=== PATIENT | male | born 1980 | race Caucasian/White ===

== ENCOUNTER 2023-11-20 12:56 | Emergency (ER) | payer OTHER, SELFPAY ==
--- NOTE | 2023-11-20 12:58 | ED.EAR ---
HPI - Ear Problem General Chief complaint: Ear Stated complaint: Object Stuck in Left Ear Time Seen by Provider: 11/20/23 12:57 Source: patient Mode of arrival: ambulatory Limitations: no limitations History of Present Illness HPI Narrative: Patient is a 42-year-old male who presents with piece of ear bud stuck in left ear canal. Complaint: ear pain Related Data Home Medications Medication Instructions Recorded Confirmed No Home Medications 11/20/23 11/20/23 Allergies Allergy/AdvReac Type Severity Reaction Status Date / Time No Known Allergies Allergy Verified 11/20/23 13:02 Review of Systems Review of Systems: All systems reviewed & are unremarkable except as noted in HPI and below Constitutional: Constitutional: Denies body ache(s), Denies chills, Denies fever(s), Denies headache(s) and Denies malaise Eyes: Eyes: Denies blurry vision, Denies eye discharge and Denies irritation ENT: Denies headache(s), Denies nasal congestion, Denies nasal discharge, Denies sore throat and Reports other (Foreign body in ear) Cardiovascular: Cardiovascular: Denies chest pain, Denies edema, Denies palpitations and Denies dyspnea on exertion Respiratory: Respiratory: Denies cough and Denies dyspnea on exertion Gastrointestinal: Gastrointestinal: Denies abdominal pain, Denies diarrhea, Denies nausea and Denies vomiting Musculoskeletal: Musculoskeletal: Denies back pain, Denies arthralgias and Denies muscle weakness Integumentary/Breasts: Skin/Breast: Denies pruritus and Denies rash Neurologic: Denies headache(s) Psychiatric: Psychiatric: Reports no additional psychiatric complaints Endocrine: Endocrine: Denies palpitations PMFSH Comments At time of signature, agree with nursing past medical, surgical, social and family history. There is no relevant family history pertinent to the presenting complaint? Exam Const: General: cooperative, healthy appearing, no acute distress and well nourished Nutritional Appearance: well nourished Orientation/consciousness: patient oriented x3 Limitations: no limitations HENMT: Head: normal to inspection, normocephalic and atraumatic Ears: hearing grossly normal bilaterally, TM normal on the right, no periauricular adenopathy and Abnormal EAC present foreign body on the left Face/Nose/Sinus: Normal external nose present, Normal nares present, Normal nasal mucous membranes and turbinates present, No nasal discharge present, normal facial exam and sinuses nontender Face and sinus: normal facial exam and sinuses nontender Mouth: Yes Normal oral and palatal mucosa present, Yes lip normal, Yes tongue normal and Yes moist mucous membranes Throat: posterior oropharynx normal, tonsils normal and uvula midline Eyes: General: appearance normal, both eyes and all related structures Alignment and Position: alignment normal and position normal Eyelids: eyelids normal Pupils: Equal, round and reactive pupils present EOM: EOMs intact bilaterally Neck: Neck: normal visual inspection, full ROM, no lymphadenopathy and supple Chest: Chest palpation & inspection: normal inspection of the chest Resp: Effort & Inspection: normal respiratory effort and able to speak in complete sentences Auscultation: clear to auscultation bilaterally, no crackles, no rales, no rhonchi and no wheezes Cardio: Rate: regular rate Rhythm: regular rhythm Heart sounds: S1 normal heart sound present and S2 normal heart sound present Skin: General skin exam: normal color and no rashes or lesions noted Neuro: General: patient oriented x3 and moves all extremities Cranial nerves: Yes Equal, round and reactive pupils present Cognition (Neuro): normal cognition Speech: normal speech Gait exam (Neuro): Normal gait present Extrem: General: normal to inspection and full ROM Psych: Appearance: grossly normal and well kempt Mental Status: mental status grossly normal Speech and movement: Normal speech and movement present Co
[2023-11-20 13:07] VITALS: BP 142/93; PULSE 99; RESP 14; TEMP 37.4; O2SAT 98
== END 2023-11-20 13:20 | disposition home or self-care (01) ==
PROVIDERS: Emergency Provider Nurse Practitioner Family; PCP Family Medicine
DX: T16.2XXA Foreign body in left ear, initial encounter (principal); W44.G1XA Audio device entering into or through a natural orifice, initial encounter
CPT/HCPCS: 69200; 99212; G0463

== ENCOUNTER 2024-03-25 20:08 | Observation (INO) | payer OTHER, SELFPAY ==
--- NOTE | ~2024-03-25 | CT_ITS ---
EXAMINATION:CT diagnostic chest w con DATE: 03/25/2024 23:02 INDICATION: Dyspnea. Productive cough. TECHNIQUE: Computed tomography (CT) of the chest was performed with 75 mL Omnipaque 350 intravenous c ontrast. Automated exposure control and iterative reconstruction technique were employed. The dose-le ngth product (DLP) was 736.24 mGy-cm. COMPARISON: Chest 2 views 03/25/2024 FINDINGS: There is mild scarring at the lung apices. There is mild atelectasis bilaterally. No pleura l effusion. The heart size is normal. No pericardial effusion. There is diffuse hepatic steatosis. Th ere is mild thoracic spondylosis. IMPRESSION: 1. Mild scarring at the lung apices. 2. Diffuse hepatic steatosis. Reviewed, dictated and finalized at location A.
--- NOTE | ~2024-03-25 | XR_ITS ---
EXAMINATION: XR chest 2V DATE: 03/25/2024 20:54 INDICATION: Chest pain. TECHNIQUE: Frontal and lateral views of the chest were obtained. COMPARISON: None. FINDINGS: There is mild scarring at the lung apices. No pleural effusion or pneumothorax. The heart s ize is normal. IMPRESSION: 1. No acute cardiopulmonary disease. Reviewed, dictated and finalized at location A.
[2024-03-25 20:11] VITALS: BP 137/95; PULSE 87; RESP 20; TEMP 36.6; O2SAT 98
--- NOTE | 2024-03-25 20:16 | ECG_ITS ---
Test Date: 2024-03-25 20:19:06 Measurements Intervals [place] Rate: 151 P: 0 ID: 0 QRS: 64 QRSD: 132 T: 249 QT: 280 QTc: 444 Interpretive Statements ATRIAL FLUTTER/TACHYCARDIA WITH RAPID VENTRICULAR RESPONSE No previous ECG available for comparison Electronically Signed On 03-26-2024 13:36:17 CDT by Felton Massey M.D.
[2024-03-25 20:49] LABS: Basophils Percent Auto 0.4 % (0.2-1.2); Eosinophils Absolute Auto 0.1 K/mm3 (0-0.3); Eosinophils Percent Auto 1.3 % (0-4.4); Hemoglobin 16.4 g/dL (14.0-18.0); Immature Granulocyte Absolute 0.02 K/mm3 (0.00-0.031); Immature Granulocyte Percent A 0.3 % (0-0.5); Lymphocytes Absolute Auto 1.85 K/mm3 (0.9-3.2); Lymphocytes Percent Auto 23.2 % (18.3-44.2); Mean Corpuscular HGB Conc 34.9 g/dl (32-36); Mean Corpuscular Hemoglobin 30.5 pg (26-34); Mean Corpuscular Volume 87.4 fl (80-100); Mean Platelet Volume 10.3 fl (7.4-10.4); Monocytes Absolute Auto 1.1 K/mm3 (0.1-0.6); Monocytes Percent Auto 13.9 % (2.6-8.5); Neutrophils Absolute Auto 4.9 K/mm3 (1.3-6.7); Neutrophils Percent Auto 60.9 % (45.5-73.1); Platelet Count Result 184 k/mm3 (150-375); Red Blood Count 5.38 M/mm3 (4.6-6.20); Red Cell Distribution Width 12.5 % (11.5-14.5)
[2024-03-25 20:59] LABS: INR 1.1; Prothrombin Time 14.1 Seconds (11.1-14.7)
[2024-03-25 21:00] LABS: Partial Thromboplastin Time 27.2 Seconds (22.3-36.8)
[2024-03-25 21:02] LABS: Alanine Aminotransferase 42 U/L (6-50); Albumin Level 3.8 g/dL (3.5-5.1); Alkaline Phosphatase 62 U/L (38-126); Anion Gap 4 mmol/L (4-12); Aspartate Amino Transferase 44 U/L (17-59); Bilirubin,Total 0.6 mg/dL (0.2-1.3); Blood Urea Nitrogen 19 mg/dL (9-20); Calcium 8.5 mg/dL (8.4-10.2); Carbon Dioxide 33 mmol/L (22-30); Chloride 98 mmol/L (98-107); Estimated CRCL calculation 132 ml/min; Estimated Glomerular Filt Rate > 60; Glucose 371 mg/dL (65-110); Lipase 142 U/L (23-300); Potassium 4.4 mmol/L (3.4-5.0); Sodium 135 mmol/L (137-145)
[2024-03-25] MEDS: ASPIRIN 81 MG CHEWABLE TABLET 324 MG PO (21:07)
[2024-03-25 21:13] LABS: Troponin I < 0.012 ng/mL (0.000-0.034)
[2024-03-25] MEDS: methylPREDNISolone SOD SUCC 125 MG VIAL IV PUSH (21:29)
[2024-03-25] MEDS: dilTIAZem HCl INJ 25 MG/5 ML VIAL 10 MG IV PUSH (21:30)
[2024-03-25] MEDS: SODIUM CHLORIDE 0.9% IV 1,000 ML 999 ML IV CONT (21:30)
[2024-03-25 21:32] VITALS: BP 148/100; PULSE 132
[2024-03-25] MEDS: dilTIAZem 100 MG/100 ML 100 MG/100 ML BAG IV CONT (21:32)
[2024-03-25 21:34] LABS: Magnesium 1.9 mg/dL (1.6-2.3)
[2024-03-25] MEDS: IPRATROPIUM 0.5 MG/ALBUTEROL SULFATE 2.5 MG AMPUL.NEB 3 ML 6 ML INHALATION ×3 (21:38→21:40)
[2024-03-25 21:40] VITALS: PULSE 105; RESP 22
[2024-03-25 21:43] LABS: D Dimer < 0.27 ug/mL (<0.48)
[2024-03-25 21:45] LABS: NT Pro B Type Natriuretic Pept 236 pg/mL (19.9-100)
--- NOTE | 2024-03-25 22:12 | ED.SOB ---
HPI - SOB/Dyspnea General Chief Complaint: Shortness of Breath/Dyspnea <Angelika Melchor APRN - Last Filed: 03/26/24 00:23> Stated Complaint: palpations <Angelika Melchor APRN - Last Filed: 03/26/24 00:23> Time Seen by Provider: 03/25/24 21:00 <Angelika Melchor APRN - Last Filed: 03/26/24 00:23> History of Present Illness HPI Narrative: Patient is a 43-year-old male who presents to the ER with 6 weeks of productive cough. He reports he does not have a primary care provider as he has not had insurance. About 6 weeks ago he went to urgent care and was given amoxicillin. He completed that course but continued to sinus pressure and a cough so he went back to Urgent Care and was given a Z-Jasper. Patient reports he completed this antibiotic but has continued to have symptoms. Today patient went back to urgent care and they told him his heart rate was to, so he should go to the emergency room. Patient reports he has a medical history of diabetes, HTN, and AFib, but has not taken medication to treat these conditions in ?a while.? He denies any current shortness of breath, chest pain, or numbness/tingling in his extremities. <Angelika Melchor APRN - Last Filed: 03/26/24 00:23> Related Data Home Medications: Home Medications Medication Instructions Recorded Confirmed No Home Medications 11/20/23 11/20/23 <Angelika Melchor APRN - Last Filed: 03/26/24 00:23> Allergies/Adverse Reactions: Allergies Allergy/AdvReac Type Severity Reaction Status Date / Time No Known Allergies Allergy Verified 03/25/24 20:15 <Angelika Melchor APRN - Last Filed: 03/26/24 00:23> Review of Systems Review of Systems: All systems reviewed & are unremarkable except as noted in HPI and below <Angelika Melchor APRN - Last Filed: 03/26/24 00:23> Exam Narrative: GENERAL: Well appearing, obese, non-toxic, in no acute distress. HEAD: Normocephalic, atraumatic. NECK: Supple. No adenopathy, no masses. RESPIRATORY: Airway patent, respirations nonlabored. Clear to auscultation bilaterally, no rales, rhonchi, wheezing. CARDIOVASCULAR: Irregular rate and rhythm (a. flutter) without murmurs, rubs, or gallops. Peripheral pulses 2+ and equal bilaterally. Lower extremities mildly edematous. ABDOMINAL: Soft, nontender, nondistended, no hepatosplenomegaly. Normoactive BS. MUSCULOSKELETAL: Moves all extremities. Strength/ROM intact without gross deformities. SKIN: Warm, dry, normal color. No rashes. NEURO: A&O X3. Speech clear. Cranial nerves II-XII grossly intact. No ataxic movements. PSYCHIATRIC: Appropriate mood and affect. Normal interaction. <Angelika Melchor APRN - Last Filed: 03/26/24 00:23> Course SHIRT TURNER/PA Physician Supervision This visit was performed by both a physician and an APC. I performed all aspects of the MDM as documented. <Adolfo Feliciano MD - Last Filed: 03/26/24 01:02> Vital Signs Vital signs: Vital Signs Temperature 97.9 F 03/25/24 20:11 Pulse Rate 87 03/25/24 20:11 Respiratory Rate 20 03/25/24 20:11 Blood Pressure 137/95 H 03/25/24 20:11 Pulse Oximetry 98 03/25/24 20:11 Oxygen Delivery Room Air 03/25/24 20:11 Temperature 98.3 F 03/26/24 00:40 Pulse Rate 92 03/26/24 00:40 Respiratory Rate 22 H 03/26/24 00:40 Blood Pressure 127/79 03/26/24 00:40 Pulse Oximetry 93 03/26/24 00:40 Oxygen Delivery Room Air 03/25/24 21:01 <Angelika Melchor APRN - Last Filed: 03/26/24 00:23> Vital Signs Temperature 97.9 F 03/25/24 20:11 Pulse Rate 87 03/25/24 20:11 Respiratory Rate 20 03/25/24 20:11 Blood Pressure 137/95 H 03/25/24 20:11 Pulse Oximetry 98 03/25/24 20:11 Oxygen Delivery Room Air 03/25/24 20:11 Temperature 98.3 F 03/26/24 00:40 Pulse Rate 92 03/26/24 00:40 Respiratory Rate 22 H 03/26/24 00:40 Blood Pressure 127/79 03/26/24 00:40 Pulse Oximetry 93 03/26/24 00:40 Oxygen Del
[2024-03-25 22:43] VITALS: PULSE 121; RESP 21
[2024-03-25 23:10] VITALS: PULSE 94
[2024-03-25 23:11] VITALS: BP 152/89; PULSE 94; RESP 18; O2SAT 93
--- NOTE | 2024-03-25 23:14 | ECG_ITS ---
Test Date: 2024-03-25 23:25:30 Measurements Intervals [place] Rate: 91 P: 5 NE: 164 QRS: 56 QRSD: 80 T: 90 QT: 350 QTc: 432 Interpretive Statements SINUS RHYTHM Compared to ECG 03/25/2024 20:19:06 Atrial flutter no longer present Electronically Signed On 03-26-2024 13:38:02 CDT by Felton Massey M.D.
[2024-03-25 23:32] LABS: Lactic Acid Reflex 1.4 mmol/L (0.7-2.0)
--- NOTE | 2024-03-25 23:34 | PM.IMHP ---
H&P: HPI History of Present Illness Date/Time: 03/25/24 23:34 Chief Complaint: cough Narrative: This is a 43-year-old male with past medical history significant for type 2 diabetes mellitus, patient takes metformin for it, obesity, and tobacco dependence. Patient presents to the emergency room after having 2-3 weeks of upper airway infection, cough, productive sputum, nasal congestion has had 2 courses of antibiotics but states that has not improved. patient was found to have atrial fibrillation with rapid ventricular response has been placed on diltiazem drip. Preliminary workup here was negative for pneumonia including CT of the chest. Patient has been placed in observation. EXAMINATION: XR chest 2V DATE: 03/25/2024 20:54 INDICATION: Chest pain. TECHNIQUE: Frontal and lateral views of the chest were obtained. COMPARISON: None. FINDINGS: There is mild scarring at the lung apices. No pleural effusion or pneumothorax. The heart size is normal. IMPRESSION: 1. No acute cardiopulmonary disease. EXAMINATION:CT diagnostic chest w con DATE: 03/25/2024 23:02 INDICATION: Dyspnea. Productive cough. TECHNIQUE: Computed tomography (CT) of the chest was performed with 75 mL Omnipaque 350 intravenous contrast. Automated exposure control and iterative reconstruction technique were employed. The dose-length product (DLP) was 736.24 mGy-cm. COMPARISON: Chest 2 views 03/25/2024 FINDINGS: There is mild scarring at the lung apices. There is mild atelectasis bilaterally. No pleural effusion. The heart size is normal. No pericardial effusion. There is diffuse hepatic steatosis. There is mild thoracic spondylosis. IMPRESSION: 1. Mild scarring at the lung apices. 2. Diffuse hepatic steatosis. Review of Systems Review of Systems: uncontrolled sugar, cough, upper airway congestion [facility] Social History Social History Smoking status: Light tobacco smoker Tobacco type: cigarettes Alcohol intake: current Drinks per week: 1 Substance use: never Substance use type: does not use Do You Feel Safe in your Home?: Yes Lack of Transportation: No Lack of Food: Never True Current Housing: I Have Housing Concerned About Future Housing: No Difficulty Paying Gas/Electric Bills: No Difficulty Paying for Meds: No Currently Unemployed: No Education: High School Diploma/GED Difficulty w/ Childcare or Family Care: No Spiritual care concerns: No Meds Home Medications and Allergies Home Medications Medication Instructions Recorded Confirmed Type No Home Medications 11/20/23 03/26/24 History diltiazem HCl 120 mg capsule,24 120 mg PO QAM 5 days #5 caps 03/26/24 Rx hr,extended release metformin 500 mg tablet 500 mg PO BIDWMEAL 5 days #10 tabs 03/26/24 Rx Allergies Allergy/AdvReac Type Severity Reaction Status Date / Time No Known Allergies Allergy Verified 03/25/24 20:15 Vital Signs Vital Signs - 24 hr 03/25/24 20:11 03/25/24 21:01 03/25/24 21:32 Temperature 97.9 F Pulse Rate 87 132 H Respiratory Rate 20 Blood Pressure 137/95 H 148/100 H Pulse Oximetry 98 Oxygen Delivery Room Air Room Air 03/25/24 21:40 03/25/24 22:43 03/25/24 23:10 Temperature Pulse Rate 105 H 121 H 94 Respiratory Rate 22 H 21 H Blood Pressure Pulse Oximetry Oxygen Delivery 03/25/24 23:11 Temperature Pulse Rate 94 Respiratory Rate 18 Blood Pressure 152/89 H Pulse Oximetry 93 Oxygen Delivery Exam Narrative: sitting in bed Const: General: comfortable, no acute distress, well developed, alert, awake and overweight Nutritional Appearance: overweight Orientation/consciousness: patient oriented x3 Other: well-appearing HENMT: Head: normal to inspection, normocephalic and atraumatic Ears: hearing grossly normal bilaterally Face/Nose/Sinus: normal facial exam Face and sinus: normal facial
[2024-03-25 23:45] LABS: Troponin I < 0.012 ng/mL (0.000-0.034)
[2024-03-25 23:46] LABS: Strep Group A RT-PCR NOT DETECTED (Negative)
[2024-03-26] VITALS (22 sets, daily range): BP systolic 112–138; BP diastolic 70–79; PULSE 82–140; RESP 16–24; TEMP 36.5–36.8; O2SAT 92–98; BMI 31.7
--- NOTE | 2024-03-26 | ECHO_ITS ---
Patient Info Name: Adi Ramírez Age: 43 years : 1980 Gender: Male Ht: 72 in Wt: 260 lbs BSA: 2.49 m2 HR: 91 bpm BP: 133 / 78 mmHg Heart Rhythm: Sinus Rhythm Technical Quality: Fair Exam Date: 03/26/2024 11:51 AM Exam Location: Echo Lab Patient Status: Outpatient Admit Date: 03/26/2024 Staff Ordering Physician: Ari Ivan MD Pearl Cutter: Harriet Goode RDCS Attending Provider: Lc Covarrubias MD Exam Type: CA echo doppler color flow Study Info Indications R00.0 - Tachycardia, unspecified Complete two-dimensional, color flow and Doppler transthoracic echocardiogram is performed with contrast to opacify the left ventricle and to improve the deliniation of the left ventricle endocardial borders. Contrast/Agitated Saline Contrast/Ag. Saline: Definity Amount: 2.00 ml Administered By: Hariret Goode RDCS Existing IV Access: Yes IV Access Condition: patent with no signs of infiltration Summary 1. Left ventricular chamber dimension is normal. 2. Left ventricular systolic function is normal, estimated at 65-70%. 3. There is no increased left ventricular wall thickness. 4. The left ventricular diastolic function is normal. 5. Left atrial chamber dimension is mildly enlarged. 6. There is mild mitral valve regurgitation. 7. There is mild tricuspid valve regurgitation. Left Ventricle Left ventricular chamber dimension is normal. Left ventricular systolic function is normal, estimated at 65-70%. There is no increased left ventricular wall thickness. The left ventricular diastolic function is normal. Right Ventricle Right ventricular chamber dimension is normal. Right ventricular systolic function is normal. Left Atria Left atrial chamber dimension is mildly enlarged. Right Atria Right atrial chamber dimension is normal. Atrial Septum Intact interatrial septum visualized by color flow imaging. Aortic Valve The aortic valve is trileaflet. There is mild aortic valve sclerosis. There is no aortic valve stenosis. There is trace aortic valve regurgitation. Pulmonic Valve The pulmonic valve is normal. There is no pulmonic valve stenosis. There is trace pulmonic regurgitation. Mitral Valve The mitral valve has normal leaflets. There is no mitral valve stenosis. There is mild mitral valve regurgitation. Tricuspid Valve The tricuspid valve leaflets are normal. There is no significant tricuspid valve stenosis. There is mild tricuspid valve regurgitation. No pulmonary hypertension, estimated pulmonary arterial systolic pressure is 26 mmHg. Pericardium/Pleural The pericardium appears normal. There is no pericardial effusion. Inferior Vena Cava Normal inferior vena cava with >50% collapse upon inspiration consistent with normal right atrial pressure, 10 mmHg. Aorta The aortic root size at the sinus of Valsalva is normal. Left Ventricular Outflow Tract Name Value Normal LVOT 2D LVOT Diameter 2.0 cm LVOT Doppler LVOT Peak Gradient 7 mmHg LVOT Mean Gradient 4 mmHg LVOT VTI 25 cm LVOT VTI/AV VTI Ratio
[2024-03-26 02:06] LABS: Glucose Point of Care 334 mg/dl (65-105)
[2024-03-26 03:55] LABS: Troponin I < 0.012 ng/mL (0.000-0.034)
--- NOTE | 2024-03-26 03:56 | ADMGEN ---
This patient, Adi Ramírez, was admitted to IMU Room 202-01. Patient/family oriented to hospital policies and general routines including ID bracelet, bed and alarms, visiting hours, pain management, procedures, bathroom and other care routines, personal items, smoking policy, room service/diet, and visiting hours. Information on how to activate the Rapid Response Team has been discussed. Patient/Family are encouraged to report perceived risks to care and to ask questions if they do not understand what they are told or what they should do.
[2024-03-26] MEDS: dilTIAZem 100 MG/100 ML 100 MG/100 ML BAG 10 MG IV CONT (05:04)
[2024-03-26 05:51] LABS: Hemoglobin A1C 12.6 % (<5.7)
[2024-03-26] MEDS: methylPREDNISolone SOD SUCC 125 MG VIAL 60 MG IV PUSH (06:01)
[2024-03-26] MEDS: IPRATROPIUM 0.5 MG/ALBUTEROL SULFATE 2.5 MG AMPUL.NEB 3 ML INHALATION ×2 (07:15→13:53)
[2024-03-26 07:57] LABS: Glucose Point of Care 398 mg/dl (65-105)
[2024-03-26] MEDS: INSULIN ASPART (*BKC) 100 UNITS/ML 6 UNITS SUB-Q ×2 (08:32→11:45)
--- NOTE | 2024-03-26 09:23 | PM.IMPN ---
Progress Note: A&P Assessment and Plan (1) Uncontrolled diabetes mellitus: Status: Acute (2) Obesity: Code(s): E66.9 - Obesity, unspecified Status: Acute (3) Tobacco dependence: Code(s): F17.200 - Nicotine dependence, unspecified, uncomplicated Status: Acute Plan This is a 43-year-old male who presents to the ED with 6 weeks of productive cough. Patient does not have a primary care provider and does not have insurance. About 6 weeks ago he went to urgent care and was given amoxicillin. He completed the course but continued to have sinus pressure and cough so he went back to Urgent Care and was given a Z-Jasper. Completed antibiotic but continued to have symptoms. Today patient went back to urgent care and told his heart rate was so sent to the ER for evaluation. He has not been taking any medications but does report history of diabetes hypertension and atrial fibrillation. No shortness of breath chest pain are tingling numbness in his extremities reported. In the ED his vitals were stable except for tachycardia and 150s EKG showed atrial flutter/tachycardia with rapid ventricular response. Laboratory evaluation showed normal WBC hemoglobin 16.4 renal parameters were within normal limit. ProBNP 236. Troponin is negative x2 group a Streptococcus swab was negative beta hydroxybutyrate was 0.1 blood glucose was 371 lactic acid was normal at 1.4. Chest x-ray with no acute cardiopulmonary disease. CT scan of the chest showed mild scarring of the lung apices and diffuse hepatic steatosis. No wheezing will stop IV steroid. Cough ongoing likely related to postnasal drip. Add Flonase. CT chest and chest x-ray reviewed. He was given Cardizem bolus 10 mg and started on Cardizem drip. Patient converted to normal sinus rhythm after approximately 30 minutes of drip. Will switch to oral Cardizem. Cardiology consult. Echocardiogram Hyperglycemia A1c came back at 12.6. 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 DVT prophylaxis Lovenox Code status full code Subjective Date/time seen: 03/26/24 09:23 Interval history: No overnight events chart reviewed feels well. Telemetry reviewed. Back to sinus rhythm. Review of Systems Review of Systems: All systems reviewed & are unremarkable except as noted in HPI and below Exam Narrative: GENERAL: Well appearing, obese, non-toxic, in no acute distress. HEAD: Normocephalic, atraumatic. NECK: Supple. No adenopathy, no masses. RESPIRATORY: Airway patent, respirations nonlabored. Clear to auscultation bilaterally, no rales, rhonchi, wheezing. CARDIOVASCULAR: Regular rate and rhythm, sinus rhythm on telemetry Peripheral pulses 2+ and equal bilaterally. ABDOMINAL: Soft, nontender, nondistended, no hepatosplenomegaly. Normoactive BS. MUSCULOSKELETAL: Moves all extremities. Strength/ROM intact without gross deformities. SKIN: Warm, dry, normal color. No rashes. NEURO: A&O X3. Speech clear. Cranial nerves II-XII grossly intact. No ataxic movements. PSYCHIATRIC: Appropriate mood and affect. Normal interaction. Objective Data Vital Signs Vital Signs: Vital Signs - 24 hr 03/25/24 20:11 03/25/24 21:01 03/25/24 21:32 Temperature 97.9 F Pulse Rate 87 132 H Respiratory Rate 20 Blood Pressure 137/95 H 148/100 H Pulse Oximetry 98 Oxygen Delivery Room Air Room Air 03/25/24 21:40 03/25/24 22:43 03/25/24 23:10 Temperature Pulse Rate 105 H 121 H 94 Respiratory Rate 22 H 21 H Blood Pressure Pulse Oximetry Oxygen Delivery 03/25/24 23:11 03/26/24 00:08 03/26/24 00:40 Temperature 98.3 F Pulse Rate 94 94 92 Respiratory Rate 18 24 H 22 H Blood Pressure 152/89 H 127/79 127/79 Pulse Oximetry 93 92 93 Oxygen Delivery 03/26/24 04:25 03/26/24 05:04 03/26/24 01:30 Temperature 97.9 F Pulse Rate 123 H 140 H 95 Respiratory Rate 22 H Blood Pressure 123/77 123/77 123/79 Pulse Oximetry 94 Oxygen Delivery
--- NOTE | 2024-03-26 11:40 | PM.CNCAR ---
Assessment and Plan Assessment and plan (1) Atrial flutter: Code(s): I48.92 - Unspecified atrial flutter Status: Acute Assessment and Plan: Initial EKG shows atrial flutter with RVR. He is back in sinus rhythm now. Diltiazem drip has been stopped and he has been shifted to oral diltiazem He has a [id number] score of 1 (DM), so systemic anticoagulation is not indicated Echo has been ordered, will review Compliance with CPAP OK for discharge from a cardiac standpoint, will arrange for follow up in our office. (2) Obesity: Code(s): E66.9 - Obesity, unspecified Status: Acute Assessment and Plan: Weight loss recommended (3) Uncontrolled diabetes mellitus: Status: Acute Assessment and Plan: Management per hospitalist (4) CARLINE (obstructive sleep apnea): Code(s): G47.33 - Obstructive sleep apnea (adult) (pediatric) Status: Acute Assessment and Plan: Compliance with CPAP History of Present Illness History of Present Illness Consult date/time: 03/26/24 11:40 Requesting physician: Ari Ivan MD Consult reason: Other (atrial flutter) Reason For Visit: atrial fibrillation, elevated blood glucose Narrative: Adi Ramírez is a 43 year old male with diabetes mellitus type II, CARLINE on CPAP, and paroxysmal atrial fibrillation. He enters the hospital with a chief complaint of cough for 6 weeks. His initial EKG showed atrial flutter with rapid ventricular response. He was placed on a diltiazem drip and has spontaneously converted to sinus rhythm. He states that he was initially diagnosed with atrial fibrillation several years ago when he had COVID. He was placed on medication for rate control but did not continue to take it after his prescription ran out. He cannot remember which medication he was taking. He did not feel any palpitations, chest pain, shortness of breath while in atrial flutter. He is feeling better this morning as his cough has improved. Review of Systems Review of Systems: All systems reviewed & are unremarkable except as noted in HPI and below PMFSH Social History Social History Smoking status: Light tobacco smoker Tobacco type: cigarettes Alcohol intake: current Drinks per week: 1 Substance use: never Substance use type: does not use Do You Feel Safe in your Home?: Yes Lack of Transportation: No Lack of Food: Never True Current Housing: I Have Housing Concerned About Future Housing: No Difficulty Paying Gas/Electric Bills: No Difficulty Paying for Meds: No Currently Unemployed: No Education: High School Diploma/GED Difficulty w/ Childcare or Family Care: No Spiritual care concerns: No Meds Home Medications and Allergies Home Medications Medication Instructions Recorded Confirmed Type No Home Medications 11/20/23 03/26/24 History Allergies Allergy/AdvReac Type Severity Reaction Status Date / Time No Known Allergies Allergy Verified 03/25/24 20:15 Vital Signs Vital Signs - 24 hr 03/25/24 20:11 03/25/24 21:01 03/25/24 21:32 Temperature 36.6 C Pulse Rate 87 132 H Respiratory Rate 20 Blood Pressure 137/95 H 148/100 H Pulse Oximetry 98 Oxygen Delivery Room Air Room Air 03/25/24 21:40 03/25/24 22:43 03/25/24 23:10 Temperature Pulse Rate 105 H 121 H 94 Respiratory Rate 22 H 21 H Blood Pressure Pulse Oximetry Oxygen Delivery 03/25/24 23:11 03/26/24 00:08 03/26/24 00:40 Temperature 36.8 C Pulse Rate 94 94 92 Respiratory Rate 18 24 H 22 H Blood Pressure 152/89 H 127/79 127/79 Pulse Oximetry 93 92 93 Oxygen Delivery 03/26/24 04:25 03/26/24 05:04 03/26/24 01:30 Temperature 36.6 C Pulse Rate 123 H 140 H 95 Respiratory Rate 22 H Blood Pressure 123/77 123/77 123/79 Pulse Oximetry 94 Oxygen Delivery 03/26/24 01:40 03/26/24 02:00 03/26/24 04:00 Temperature 3
[2024-03-26 11:54] LABS: Glucose Point of Care 395 mg/dl (65-105)
[2024-03-26] MEDS: PERFLUTREN LIPID MICROSPHERES 1.5 ML VIAL DILUTED TO 10 ML TOTAL VOLUME IV PUSH (12:24)
[2024-03-26] MEDS: dilTIAZem HCL CD 120 MG CAP.24HR PO (12:32)
--- NOTE | 2024-03-26 13:46 | PC.NURSE ---
nursing educator called at [phone]. no answer-voicemail left for diabetic consult to education.
--- NOTE | 2024-03-26 15:41 | IVDEFINITY ---
Prior to administration of IV Definity the patient was educated on the risks and benefits of the imaging enhancing agent including potential adverse side effects. The patient verbalized understanding. Allergies were verified. No exclusion criteria were identified and at least one of the following inclusion criteria were met: 1) physician request, 2) patient technically difficult to image (per the [place] [employer] guidelines of two or more segments not discernable within the apical view), or 3) questionable left ventricular function. ?
[2024-03-26] MEDS: INSULIN ASPART (*BKC) 100 UNITS/ML 15 UNITS SUB-Q (16:14)
[2024-03-26] MEDS: INSULIN GLARGINE (*BKC) 100 UNITS/ML 18 UNITS SUB-Q (16:14)
[2024-03-26 17:39] LABS: Glucose Point of Care 443 mg/dl (65-105)
[2024-03-26 17:41] LABS: Glucose Point of Care 422 mg/dl (65-105)
--- NOTE | 2024-03-26 19:34 | PC.NURSE ---
Spoke with patient at 1840 who expresses desire to sign out AMA related to ongoing family and work related concerns. Patient is aware that he is not ready for discharge and recently came off a Cardizem gtt., as well as dealing with hyperglycemia uncontrolled. Dr. Covarrubias, admitting chief security and safety officer called and updated on patient. Patient given AMA paperwork. groundwater monitoring technician and IV removed. Dr. Covarrubias agreed to give prescriptions for Cardizem PO and metformin PO x 5 day courses until patient could find a PCP. Patient instructed to go to the nearest ER if condition changes or worsens. Patient given a list of PCP providers to follow up with. Patient agrees to call offices on Friday and locate a provider.
--- NOTE | 2024-03-26 20:57 | PM.DS ---
DS: Admitting Diagnosis Discharge Date 03/26/24 Admitting Diagnosis Hyperglycemia DS: Discharge Diagnosis Discharge Diagnosis (1) Uncontrolled diabetes mellitus: Status: Acute (2) Obesity: Code(s): E66.9 - Obesity, unspecified Status: Acute (3) Tobacco dependence: Code(s): F17.200 - Nicotine dependence, unspecified, uncomplicated Status: Acute (4) Atrial flutter: Code(s): I48.92 - Unspecified atrial flutter Status: Acute (5) CARLINE (obstructive sleep apnea): Code(s): G47.33 - Obstructive sleep apnea (adult) (pediatric) Status: Acute DS: Summary Hospital Course Hospital Course: This is a 43-year-old male who presents to the ED with 6 weeks of productive cough. Patient does not have a primary care provider and does not have insurance. About 6 weeks ago he went to urgent care and was given amoxicillin. He completed the course but continued to have sinus pressure and cough so he went back to Urgent Care and was given a Z-Jasper. Completed antibiotic but continued to have symptoms. Today patient went back to urgent care and told his heart rate was so sent to the ER for evaluation. He has not been taking any medications but does report history of diabetes hypertension and atrial fibrillation. No shortness of breath chest pain are tingling numbness in his extremities reported. In the ED his vitals were stable except for tachycardia and 150s EKG showed atrial flutter/tachycardia with rapid ventricular response. Laboratory evaluation showed normal WBC hemoglobin 16.4 renal parameters were within normal limit. ProBNP 236. Troponin is negative x2 group a Streptococcus swab was negative beta hydroxybutyrate was 0.1 blood glucose was 371 lactic acid was normal at 1.4. Chest x-ray with no acute cardiopulmonary disease. CT scan of the chest showed mild scarring of the lung apices and diffuse hepatic steatosis. No wheezing will stop IV steroid. Cough ongoing likely related to postnasal drip. Add Flonase. CT chest and chest x-ray reviewed. He was given Cardizem bolus 10 mg and started on Cardizem drip. Patient converted to normal sinus rhythm after approximately 30 minutes of drip. Will switch to oral Cardizem. Cardiology consult. Echocardiogram reviewed Hyperglycemia A1c came back at 12.6. Start basal bolus insulin regimen hematology nurse educator to see. Still hyperglycemic. Adjusting insulin regimen however patient left against medical advise. He was given metformin script. And advised follow-up with PCP next week DVT prophylaxis Lovenox Code status full code Time Spent with Patient Time attestation: Total time spent providing and/or coordinating discharge services: 35 minutes Exam Narrative: GENERAL: Well appearing, obese, non-toxic, in no acute distress. HEAD: Normocephalic, atraumatic. NECK: Supple. No adenopathy, no masses. RESPIRATORY: Airway patent, respirations nonlabored. Clear to auscultation bilaterally, no rales, rhonchi, wheezing. CARDIOVASCULAR: Regular rate and rhythm, sinus rhythm on telemetry Peripheral pulses 2+ and equal bilaterally. ABDOMINAL: Soft, nontender, nondistended, no hepatosplenomegaly. Normoactive BS. MUSCULOSKELETAL: Moves all extremities. Strength/ROM intact without gross deformities. SKIN: Warm, dry, normal color. No rashes. NEURO: A&O X3. Speech clear. Cranial nerves II-XII grossly intact. No ataxic movements. PSYCHIATRIC: Appropriate mood and affect. Normal interaction. DS: Data Data Completed and Pending Labs on day of discharge: Labs from last 24 hours 03/26/24 03/26/24 17:37 15:37 POC Capillary Glucose 422 H 443 H Preliminary micro results at discharge 03/26/24 00:45 Blood Culture - Preliminary Blood 03/25/24 23:37 Blood Culture - Preliminary Blood Imaging Radiologist's impression: ITS Impressions Chest X-Ray 03/25/24 21:08 IMPRESSION: 1. No acute cardiopulmonary disease. Chest CT
--- NOTE | 2024-03-29 13:27 | PCCDE ---
03/29/24 1:25 pm Message left on patient machine including direct call back number [phone].
== END 2024-03-26 19:52 | disposition left against medical advice (07) ==
LOC: ANHED 03-26 00:05 → ANHIMU 03-26 01:02
PROVIDERS: Emergency Medicine; Admitting Provider Internal Medicine; Emergency Provider Registered Nurse; Visit Provider Internal Medicine
DX: E11.65 Type 2 diabetes mellitus with hyperglycemia (principal); I48.92 Unspecified atrial flutter; R00.0 Tachycardia, unspecified; R05.9 Cough, unspecified; E66.9 Obesity, unspecified; Z68.31 Body mass index [BMI] 31.0-31.9, adult; G47.33 Obstructive sleep apnea (adult) (pediatric); I10 Essential (primary) hypertension; I48.0 Paroxysmal atrial fibrillation; F17.210 Nicotine dependence, cigarettes, uncomplicated; K76.0 Fatty (change of) liver, not elsewhere classified; Z86.16 Personal history of COVID-19; Z59.71 Insufficient health insurance coverage; Z91.141 Patient's other noncompliance with medication regimen due to financial hardship
CPT/HCPCS: 36415; 71046; 71260; 80053; 82010; 82948; 83036; 83605; 83690; 83735; 83880; 84484; 85025; 85380; 85610; 85730; 87040; 87651; 93005; 93306; 94640; 96361; 96365; 96366; 96375; 99285; A9270; G0378; J1815; J2919; J7030; Q9957; Q9967